=== PATIENT | female | born 1990 | race Caucasian/White ===

== ENCOUNTER 2016-02-22 22:12 | Emergency (ER) | payer OTHER ==
[2016-02-23] MEDS ORDERED: METOCLOPRAMIDE 10 MG TAB As Ordered ONE (00:09)
[2016-02-23 00:20] LABS: BASO # 0.1 K/mm3 (0.0-0.2); BASO % 0.9 % (0.0-1.0); EOS # 0.2 K/mm3 (0.0-0.50); LARGE UNSTAINED CELL # 0.1 K/mm3 (0.0-0.4); LARGE UNSTAINED CELL % 0.9 % (0.0-4.0); LYMPH # 2.7 K/mm3 (1.5-6.5); LYMPH % 21.3 % (24.0-44.0); MEAN CORPUSCULAR HEMOGLOBIN 30.7 pg (27.0-33.0); MEAN CORPUSCULAR VOLUME 90.2 fl (80.0-96.0); MONO # 0.4 K/mm3 (0.0-0.8); MONO % 3.3 % (0.0-5.0); NEUTROPHILS # 8.6 K/mm3 (1.8-7.7); NEUTROPHILS % 71.6 % (36.0-66.0); PLATELET COUNT, AUTOMATED 283 k/mm3 (150-450); RED CELL DISTRIBUTION WIDTH 12.6 % (11.5-14.5)
[2016-02-23 00:34] LABS: CONTROL LINE HCG INT CTR LINE PRESENT
[2016-02-23 00:42] LABS: ALBUMIN 4.1 GM/DL (3.2-5.2); ALBUMIN/GLOBULIN RATIO 1.24 (1.00-1.93); ALKALINE PHOSPHATASE 87 U/L (45-117); ALT/SGPT 20 U/L (12-78); ANION GAP 9 MEQ/L (8-16); AST/SGOT 9 U/L (15-37); BILIRUBIN,DIRECT < 0.1 MG/DL (0.0-0.2); BILIRUBIN,TOTAL 0.2 MG/DL (0.2-1.0); BLOOD UREA NITROGEN 10 MG/DL (7-18); CALCIUM LEVEL 8.8 MG/DL (8.5-10.1); CARBON DIOXIDE LEVEL 27 MEQ/L (21-32); CHLORIDE LEVEL 105 MEQ/L (98-107); CREATININE FOR GFR 0.69 MG/DL (0.55-1.02); GLOMERULAR FILTRATION RATE > 60.0 (>60); GLUCOSE, FASTING 98 MG/DL (70-105); POTASSIUM SERUM 4.1 MEQ/L (3.5-5.1); SODIUM LEVEL 141 MEQ/L (136-145); TOTAL PROTEIN 7.4 GM/DL (6.4-8.2)
--- NOTE | 2016-02-23 01:03 | EDDOCDS ---
Nurse's Notes [facility] Name: Sarah Cortes Age: 26 yrs Sex: Female : 1990 Arrival Date: 02/22/2016 Time: 22:12 Bed Triage 2 Private MD: CRISTINA Hurd Diagnosis: Nausea and vomiting Presentation: 02/21 22:35 Presenting complaint: Patient states: vomiting x3 weeks. Migraine started today. Pain ttb resolved. Slightly nauseated now. Denies changes. Denies -- negative tests at home. Pt states, "I'm sick of puking". Adult Sepsis Screening: The patient does not have new or worsening altered mentation. Patient's respiratory rate is less than 22. Systolic blood pressure is greater than 100. Patient has a qSOFA score of 0- Negative Sepsis Screen. Suicide/Homicide risk assessment- the patient denies having any suicidal and/or homicidal ideations and does not present with any other emotional, behavioral or mental health complaints. Status: The patient is a dependent. Transition of care: patient was not received from another setting of care. 22:35 Acuity: GALO Level 4 ttb 22:35 Method Of Arrival: Walkin/Carried/Asstd ttb Triage Assessment: 22:40 General: Appears in no apparent distress, well nourished, Behavior is appropriate for ttb age, cooperative, pleasant. Pain: Location: "residual headache" 2/10. HIV screening NA for this visit Offered previously. Neurological: Level of Consciousness is awake, confused, Oriented to person, place, time, Reports headache. Cardiovascular: Chest pain is denied. Respiratory: No deficits noted. Airway is patent Denies cough, shortness of breath. GI: Reports nausea, vomiting. Derm: Skin is normal. Injury Description: No known injury. 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 Celexa 40 mg Oral tab 1 tab once daily (Last dose: 02/22/2016 07:00) 2. Zyrtec 10 mg Oral tab 1 tab once daily (Last dose: 02/22/2016 07:00) 3. Vitamin Oral tab 1 tab once daily (Last dose: 02/22/2016 07:00) 4. metformin 500 mg Oral Tb24 1 tab 2 times per day (Last dose: 02/22/2016 18:00) 5. spmxelaqda-udqvvkvytq-thl-cod 36-746-05-30 mg oral cap (Last dose: 02/22/2016 20:45) - PMHx: irregular menses; Migraine Headaches; Depression; - PSHx: wisdom teeth; - Social history: Smoking status: Patient states was never smoker of tobacco. Patient/guardian denies using alcohol, street drugs, No barriers to communication noted, The patient speaks fluent Cymraes, Speaks appropriately for age. - Family history: Not pertinent. - : The pt / caregiver states he / she is not on anticoagulants. Home medication list is obtained from the patient. - Exposure Risk Screening:: None identified. Screenin/10 01:00 Screening information is obtained from the patient. Fall risk: No risks identified. lf1 Assistance ADL's: requires no assistance with activities of daily living. Abuse/DV Screen: The patient / caregiver reports he/she is:. Nutritional screening: No deficits noted. Advance Directives: Currently, there is. home support is adequate. Assessment: 00:55 Adult Sepsis Screening: The patient does not have new or worsening altered mentation. lf1 Patient's respiratory rate is less than 22. Systolic blood pressure is greater than 100. Patient has a qSOFA score of 0- Negative Sepsis Screen. General: Appears in no apparent distress, comfortable, Behavior is cooperative. Pain: Location: headache Pain currently is 3 out of 10 on a pain scale. Neurological: Level of Consciousness is awake, alert, Oriented to person, place, time. EENT: No deficits noted. Respiratory: Respiratory effort is even, unlabored. GI: No deficits noted. Denies nausea, vomiting. Derm: Skin is normal. Vital Signs: 02/21 22:13 BP 122 / 73; Pulse 91; Resp 18 S; Temp 97.8(T); Pulse Ox 100% on R/A; Weight 85.28 kg dd6 (R); Height 5 ft. 3 in. (160.02 cm) (R); 02/22 00:55 BP 106 / 67; Pulse 74; Resp 16; Temp 98.0(T); Pulse Ox 100% ; Pain 3/10; lf1 02/21 22:13 Body Mass Index 33.30 (85.28 kg, 160.02 cm) dd6 Vitals: 02/21 22:13 Log In Time: February 22, 2016 at 22:11. dd6 ED Course: 22:13 Patient visited by Jayden Covarrubias PCA. dd6 22:13 Vannessa [facility] is Private Physician. dd6 22:13 Patient moved to Waiting dd6 22:13 Patient moved to Pre RCE dd6 22:37 Triage Initiated ttb 23:53 Patient moved to Triage 2 lf1 23:55 Mario Alberto Cruz PA-C is PHCP. cc10 23:55 Dung Grant DO is Attending Physician. cc10 23:55 Patient visited by Mario Alberto Cruz PA-C. cc10 23:55 Patient visited by Mario Alberto Cruz PA-C. cc10 01 00:05 Urinalysis Sent. ajs 00:12 Patient visited by Nena Ladd LPN. cp1 00:14 HCG,Serum Qualitative Sent. ajs 00:14 Basic Metabolic Profile Sent. ajs 00:14 CBC with Diff Sent. ajs 00:14 Lipase Sent. ajs 00:14 Liver Profile Sent. ajs 00:48 Patient visited by Nena Ladd LPN. cp1 00:50 LOPEZ Hurd is Referral Physician. cc10 01:00 The patient / caregiver is instructed regarding the plan of care and ED course. lf1 01:00 No IV's were initiated during this patient's visit. No procedures done that require lf1 assistance. 01:01 T-Sheet-- Draft Copy was scanned into [employer] and attached to record. hs2 01:02 Patient visited by Muriel Oneal RN. lf1 Administered Medications: 00:12 Drug: Metoclopramide 10 mg [metoclopramide 10 mg tablet (1 tabs)] Route: PO; cp1 00:51 Follow up: Response: Nausea is decreased cp1 Order Results: Lab Order: Basic Metabolic Profile; SPEC'M 02/23/16 00:13 Test: GLUCOSE, FASTING; Value: 98; Range: 70-105; Units: MG/DL; Status: F Test: BLOOD UREA NITROGEN; Value: 10; Range: 7-18; Units: MG/DL; Status: F Test: CREATININE FOR GFR; Value: 0.69; Range: 0.55-1.02; Units: MG/DL; Status: F Test: SODIUM LEVEL; Range: 136-145; Units: MEQ/L; Status: I Test: POTASSIUM SERUM; Range: 3.5-5.1; Units: MEQ/L; Status: I Test: CHLORIDE LEVEL; Range: 98-107; Units: MEQ/L; Status: I Test: CARBON DIOXIDE LEVEL; Range: 21-32; Units: MEQ/L; Status: I Test: ANION GAP; Range: 8-16; Units: MEQ/L; Status: I Test: CALCIUM LEVEL; Range: 8.5-10.1; Units: MG/DL; Status: I Test: GLOMERULAR FILTRATION RATE; Value: > 60.0; Range: >60; Status: F Test: SODIUM LEVEL; Value: 141; Range: 136-145; Units: MEQ/L; Status: F Test: POTASSIUM SERUM; Value: 4.1; Range: 3.5-5.1; Units: MEQ/L; Status: F Test: CHLORIDE LEVEL; Value: 105; Range: 98-107; Units: MEQ/L; Status: F Test: CARBON DIOXIDE LEVEL; Value: 27; Range: 21-32; Units: MEQ/L; Status: F Test: ANION GAP; Value: 9; Range: 8-16; Units: MEQ/L; Status: F Test: CALCIUM LEVEL; Value: 8.8; Range: 8.5-10.1; Units: MG/DL; Status: F Test Note: ; Units are mL/min/1.73 m2 Chronic Kidney Disease Staging per NKF: Stage I & II GFR >=60 Normal to Mildly Decreased Stage III GFR 30-59 Moderately Decreased Stage IV GFR 15-29 Severely Decreased Stage V GFR <15 Very Little GFR Left ESRD GFR <15 on 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 Lab Order: CBC with Diff; SPEC'M 02/23/16 00:13 Test: WHITE BLOOD COUNT; Value: 12.0; Range: 4.0-10.0; Abnormal: Above high normal; Units: K/mm3; Status: F Test: RED BLOOD COUNT; Value: 4.52; Range: 4.00-5.40; Units: M/mm3; Status: F Test: HEMOGLOBIN; Value: 13.9; Range: 12.0-16.0; Units: g/dl; Status: F Test: HEMATOCRIT; Value: 40.8; Range: 36.0-47.0; Units: %; Status: F Test: MEAN CORPUSCULAR VOLUME; Value: 90.2; Range: 80.0-96.0; Units: fl; Status: F Test: MEAN CORPUSCULAR HEMOGLOBIN; Value: 30.7; Range: 27.0-33.0; Units: pg; Status: F Test: MEAN CORPUSCULAR HGB CONC; Value: 34.0; Range: 32.0-36.5; Units: g/dl; Status: F Test: RED CELL DISTRIBUTION WIDTH; Value: 12.6; Range: 11.5-14.5; Units: %; Status: F Test: PLATELET COUNT, AUTOMATED; Value: 283; Range: 150-450; Units: k/mm3; Status: F Test: NEUTROPHILS %; Value: 71.6; Range: 36.0-66.0; Abnormal: Above high normal; Units: %; Status: F Test: LYMPH %; Value: 21.3; Range: 24.0-44.0; Abnormal: Below low normal; Units: %; Status: F Test: MONO %; Value: 3.3; Range: 0.0-5.0; Units: %; Status: F Test: EOS %; Value: 2.0; Range: 0.0-3.0; Units: %; Status: F Test: BASO %; Value: 0.9; Range: 0.0-1.0; Units: %; Status: F Test: LARGE UNSTAINED CELL %; Value: 0.9; Range: 0.0-4.0; Units: %; Status: F Test: NEUTROPHILS #; Value: 8.6; Range: 1.8-7.7; Abnormal: Above high normal; Units: K/mm3; Status: F Test: LYMPH #; Value: 2.7; Range: 1.5-6.5; Units: K/mm3; Status: F Test: MONO #; Value: 0.4; Range: 0.0-0.8; Units: K/mm3; Status: F Test: EOS #; Value: 0.2; Range: 0.0-0.50; Units: K/mm3; Status: F Test: BASO #; Value: 0.1; Range: 0.0-0.2; Units: K/mm3; Status: F Test: LARGE UNSTAINED CELL #; Value: 0.1; Range: 0.0-0.4; Units: K/mm3; Status: F Lab Order: Lipase; [facility] 02/23/16 00:13 Test: LIPASE; Value: 122; Range: 73-393; Units: U/L; Status: F Lab Order: Liver Profile; [facility] 02/23/16 00:13 Test: AST/SGOT; Value: 9; Range: 15-37; Abnormal: Below low normal; Units: U/L; Status: F Test: ALT/SGPT; Value: 20; Range: 12-78; Units: U/L; Status: F Test: ALKALINE PHOSPHATASE; Value: 87; Range: 45-117; Units: U/L; Status: F Test: BILIRUBIN,TOTAL; Value: 0.2; Range: 0.2-1.0; Units: MG/DL; Status: F Test: BILIRUBIN,DIRECT; Value: < 0.1; Range: 0.0-0.2; Units: MG/DL; Status: F Test: TOTAL PROTEIN; Value: 7.4; Range: 6.4-8.2; Units: GM/DL; Status: F Test: ALBUMIN; Value: 4.1; Range: 3.2-5.2; Units: GM/DL; Status: F Test: ALBUMIN/GLOBULIN RATIO; Value: 1.24; Range: 1.00-1.93; Status: F Lab Order: Urinalysis; [facility] 02/23/16 00:05 Test: APPEARANCE, URINE; Value: CLOUDY; Range: CLEAR; Abnormal: Above high normal; Status: F Test: COLOR, URINE; Value: YELLOW; Range: YELLOW; Status: F Test: PH,URINE; Value: 5.0; Range: 5.0-9.0; Units: UNITS; Status: F Test: SPECIFIC GRAVITY URINE AUTO; Value: 1.033; Range: 1.002-1.035; Status: F Test: PROTEIN, URINE AUTO; Value: 2+; Range: NEGATIVE; Abnormal: Above high normal; Units: mg/dL; Status: F Test: GLUCOSE, URINE (UA) AUTO; Value: NEGATIVE; Range: NEGATIVE; Units: mg/dL; Status: F Test: KETONE, URINE AUTO; Value: TRACE; Range: NEGATIVE; Abnormal: Above high normal; Units: mg/dL; Status: F Test: UROBILINOGEN, URINE AUTO; Value: 0.2; Range: 0.0-2.0; Units: mg/dL; Status: F Test: BILIRUBIN, URINE AUTO; Value: NEGATIVE; Range: NEGATIVE; Status: F Test: NITRITE, URINE AUTO; Value: NEGATIVE; Range: NEGATIVE; Status: F Test: LEUKOCYTE ESTERASE, URINE AUTO; Value: 1+; Range: NEGATIVE; Abnormal: Above high normal; Status: F Test: BLOOD, URINE BLOOD; Value: NEGATIVE; Range: NEGATIVE; Status: F Test: WBC, URINE AUTO; Value: 2; Range: 0-3; Units: /HPF; Status: F Test: RBC, URINE AUTO; Value: 15; Range: 0-3; Abnormal: Above high normal; Units: /HPF; Status: F Test: BACTERIA, URINE AUTO; Value: NEGATIVE; Range: NEGATIVE; Status: F Test: SQUAMOUS EPITHELIAL CELL UR AU; Value: 15; Range: 0-6; Units: /HPF; Status: F Test: MUCUS, URINE; Value: SMALL; Range: NEGATIVE; Status: F Test: HYALINE CAST, URINE AUTO; Value: 0; Range: 0-1; Units: /LPF; Status: F Lab Order: HCG,Serum Qualitative; SPEC'M 02/23/16 00:13 Test: HCG, SERUM QUALITATIVE; Value: NEGATIVE; Range: NEGATIVE; Status: F Outcome: 00:50 Discharge ordered by Provider. cc10 01:00 Discharge Assessment: Patient awake, alert and oriented x 3. No cognitive and/or lf1 functional deficits noted. Patient verbalized understanding of disposition instructions. Patient awake and alert. Oriented to person, place and time. Patient verbalized understanding of disposition instructions. Patient has no functional deficits. patient administered narcotics - no. The following High Risk Discharge criteria are identified: None. Condition: improved. Discharge instructions given to patient, Instructed on discharge instructions, follow up and referral plans. medication usage, Demonstrated understanding of instructions, medications, Pt was receptive of discharge instructions/ teaching. Prescriptions given X 2. No special radiology studies were completed. Property :Personal belongings accompany Pt. 01:02 Patient left the ED. lf1 Signatures: Muriel Oneal,RN RN lf1 Jayden Covarrubias, SALES PROMOTION MANAGER SALES PROMOTION MANAGER dd6 Nena Ladd LPN [id number] TANK DRIVER cp1 Jerri Nobles Teresa RN RN ttb Mario Alberto Cruz, PA-C PA-C cc10 Gladys Hodge, Reg Reg hs2 MTDD
--- NOTE | 2016-02-23 01:03 | EDDOCDS ---
Physician Documentation [facility] Name: Sarah Cortes Age: 26 yrs Sex: Female : 1990 Arrival Date: 02/22/2016 Time: 22:12 Bed Triage 2 Private MD: CRISTINA Hurd Disposition: 02/23/16 00:50 Discharged to Home/Self Care. Impression: Nausea and vomiting. - Condition is Stable. - Discharge Instructions: Nausea and Vomiting. - Prescriptions for Compazine 10 mg Oral Tablet - take 1 tablet by ORAL route every 8 hours As needed; 20 tablet. Zantac 300 mg Oral Tablet - take 1 tablet by ORAL route At bedtime; 30 tablet. - Medication Reconciliation, Local Pharmacy Hours form. - Follow up: Emergency Department; When: As needed; Reason: Worsening of conditions. Follow up: CRISTINA Hurd; When: Tomorrow; Reason: Wound/Symptom Recheck, Recheck today's complaints, Worsening of conditions, Continuance of care. - Problem is an ongoing problem. - Symptoms have improved. Historical: - Allergies: no known allergies; - Home Meds: 1. Celexa 40 mg Oral tab 1 tab once daily (Last dose: 02/22/2016 07:00) 2. Zyrtec 10 mg Oral tab 1 tab once daily (Last dose: 02/22/2016 07:00) 3. Vitamin Oral tab 1 tab once daily (Last dose: 02/22/2016 07:00) 4. metformin 500 mg Oral Tb24 1 tab 2 times per day (Last dose: 02/22/2016 18:00) 5. ipftjqwetj-kqqvdtucmp-itw-cod 54-409-67-30 mg oral cap (Last dose: 02/22/2016 20:45) - PMHx: irregular menses; Migraine Headaches; Depression; - PSHx: wisdom teeth; - Social history: Smoking status: Patient states was never smoker of tobacco. Patient/guardian denies using alcohol, street drugs, No barriers to communication noted, The patient speaks fluent Urdu, Speaks appropriately for age. - Family history: Not pertinent. - : The pt / caregiver states he / she is not on anticoagulants. Home medication list is obtained from the patient. - Exposure Risk Screening:: None identified. 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 3 in. (160.02 cm) (R); 02/22 00:55 BP 106 / 67; Pulse 74; Resp 16; Temp 98.0(T); Pulse Ox 100% ; Pain 3/10; lf1 02/21 22:13 Body Mass Index 33.30 (85.28 kg, 160.02 cm) dd6 MDM: 00:01 Metoclopramide 10 mg PO once ordered. cc10 00:02 Basic Metabolic Profile Ordered. EDMS 00:02 CBC with Diff Ordered. EDMS 00:03 Lipase Ordered. EDMS 00:03 Liver Profile Ordered. EDMS 00:03 Urinalysis Ordered. EDMS 00:03 HCG,Serum Qualitative Ordered. EDMS 00:48 CBC with Diff Reviewed. cc10 00:48 Liver Profile Reviewed. cc10 00:48 Urinalysis Reviewed. cc10 00:48 Basic Metabolic Profile Reviewed. cc10 00:48 Lipase Reviewed. cc10 00:48 HCG,Serum Qualitative Reviewed. cc10 00:[address] [facility] 01:01 T-Sheet-- Draft Copy was scanned into [employer] and attached to record. hs2 Administered Medications: 00:12 Drug: Metoclopramide 10 mg [metoclopramide 10 mg tablet (1 tabs)] Route: PO; cp1 00:51 Follow up: Response: Nausea is decreased cp1 Signatures: Dispatcher [employer] EDMO Muriel OnealRN RN lf1 Loreta Orta RN RN ttb Mario Alberto Cruz PA-C PA-C cc10 Joyce Wetzel PA-C PA-C dt4 Sofy Fischer [facility] Gladys Hodge, Reg Reg hs2 Nena Ladd LPN cp1 The chart was reviewed and I authenticate all verbal orders and agree with the evaluation and treatment provided.Corrections: (The following items were deleted from the chart) 00:01 02/21 23:01 UCG by Nursing ordered. dt4 cc10 Attachments: 02/22 01:01 T-Sheet-- Draft Copy hs2 MTDD
--- NOTE | 2016-02-25 02:03 | EDDOCDS ---
Physician Documentation [facility] Name: Sarah Cortes Age: 26 yrs Sex: Female : 1990 Arrival Date: 02/22/2016 Time: 22:12 Bed Triage 2 Private MD: CRISTINA Hurd Disposition: 02/23/16 00:50 Discharged to Home/Self Care. Impression: Nausea and vomiting. - Condition is Stable. - Discharge Instructions: Nausea and Vomiting. - Prescriptions for Compazine 10 mg Oral Tablet - take 1 tablet by ORAL route every 8 hours As needed; 20 tablet. Zantac 300 mg Oral Tablet - take 1 tablet by ORAL route At bedtime; 30 tablet. - Medication Reconciliation, Local Pharmacy Hours form. - Follow up: Emergency Department; When: As needed; Reason: Worsening of conditions. Follow up: CRISTINA Hurd; When: Tomorrow; Reason: Wound/Symptom Recheck, Recheck today's complaints, Worsening of conditions, Continuance of care. - Problem is an ongoing problem. - Symptoms have improved. Historical: - Allergies: no known allergies; - Home Meds: 1. Celexa 40 mg Oral tab 1 tab once daily (Last dose: 02/22/2016 07:00) 2. Zyrtec 10 mg Oral tab 1 tab once daily (Last dose: 02/22/2016 07:00) 3. Vitamin Oral tab 1 tab once daily (Last dose: 02/22/2016 07:00) 4. metformin 500 mg Oral Tb24 1 tab 2 times per day (Last dose: 02/22/2016 18:00) 5. cwvnmxdiyl-ybhtixpebg-hit-cod 73-573-09-30 mg oral cap (Last dose: 02/22/2016 20:45) - PMHx: irregular menses; Migraine Headaches; Depression; - PSHx: wisdom teeth; - Social history: Smoking status: Patient states was never smoker of tobacco. Patient/guardian denies using alcohol, street drugs, No barriers to communication noted, The patient speaks fluent Irish, Speaks appropriately for age. - Family history: Not pertinent. - : The pt / caregiver states he / she is not on anticoagulants. Home medication list is obtained from the patient. - Exposure Risk Screening:: None identified. 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 3 in. (160.02 cm) (R); 02/22 00:55 BP 106 / 67; Pulse 74; Resp 16; Temp 98.0(T); Pulse Ox 100% ; Pain 3/10; lf1 02/21 22:13 Body Mass Index 33.30 (85.28 kg, 160.02 cm) dd6 MDM: 00:01 Metoclopramide 10 mg PO once ordered. cc10 00:02 Basic Metabolic Profile Ordered. EDMS 00:02 CBC with Diff Ordered. EDMS 00:03 Lipase Ordered. EDMS 00:03 Liver Profile Ordered. EDMS 00:03 Urinalysis Ordered. EDMS 00:03 HCG,Serum Qualitative Ordered. EDMS 00:48 CBC with Diff Reviewed. cc10 00:48 Liver Profile Reviewed. cc10 00:48 Urinalysis Reviewed. cc10 00:48 Basic Metabolic Profile Reviewed. cc10 00:48 Lipase Reviewed. cc10 00:48 HCG,Serum Qualitative Reviewed. cc10 00:57 Financial registration complete. [facility] 01:01 T-Sheet-- Draft Copy was scanned into [employer] and attached to record. hs2 01:47 [facility] Payment Agreement was scanned into [employer] and attached to record. [facility] Administered Medications: 00:12 Drug: Metoclopramide 10 mg [metoclopramide 10 mg tablet (1 tabs)] Route: PO; cp1 00:51 Follow up: Response: Nausea is decreased cp1 Signatures: Dispatcher [employer] EDMS Muriel Oneal RN RN lf1 Loreta Orta RN RN ttb Mario Alberto Cruz PA-C PA-C cc10 Joyce Wetzel PA-C PA-C dt4 Sofy Fischer [facility] Gladys Hodge, Reg Reg hs2 Nena Ladd LPN cp1 The chart was reviewed and I authenticate all verbal orders and agree with the evaluation and treatment provided.Corrections: (The following items were deleted from the chart) 00:02/21 23:01 UCG by Nursing ordered. dt4 cc10 Attachments: 02/22 01:01 T-Sheet-- Draft Copy hs2 01:47 [facility] Payment Agreement [facility] Chart Complete MTDD
--- NOTE | 2016-02-25 02:03 | EDDOCDS ---
Nurse's Notes [facility] Name: Sarah Cortes Age: 26 yrs Sex: Female : 1990 Arrival Date: 02/22/2016 Time: 22:12 Bed Triage 2 Private MD: RCISTINA Hurd Diagnosis: Nausea and vomiting Presentation: 02/21 22:35 Presenting complaint: Patient states: vomiting x3 weeks. Migraine started today. Pain ttb resolved. Slightly nauseated now. Denies changes. Denies -- negative tests at home. Pt states, "I'm sick of puking". Adult Sepsis Screening: The patient does not have new or worsening altered mentation. Patient's respiratory rate is less than 22. Systolic blood pressure is greater than 100. Patient has a qSOFA score of 0- Negative Sepsis Screen. Suicide/Homicide risk assessment- the patient denies having any suicidal and/or homicidal ideations and does not present with any other emotional, behavioral or mental health complaints. Status: The patient is a dependent. Transition of care: patient was not received from another setting of care. 22:35 Acuity: GALO Level 4 ttb 22:35 Method Of Arrival: Walkin/Carried/Asstd ttb Triage Assessment: 22:40 General: Appears in no apparent distress, well nourished, Behavior is appropriate for ttb age, cooperative, pleasant. Pain: Location: "residual headache" 2/10. HIV screening NA for this visit Offered previously. Neurological: Level of Consciousness is awake, confused, Oriented to person, place, time, Reports headache. Cardiovascular: Chest pain is denied. Respiratory: No deficits noted. Airway is patent Denies cough, shortness of breath. GI: Reports nausea, vomiting. Derm: Skin is normal. Injury Description: No known injury. 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 Celexa 40 mg Oral tab 1 tab once daily (Last dose: 02/22/2016 07:00) 2. Zyrtec 10 mg Oral tab 1 tab once daily (Last dose: 02/22/2016 07:00) 3. Vitamin Oral tab 1 tab once daily (Last dose: 02/22/2016 07:00) 4. metformin 500 mg Oral Tb24 1 tab 2 times per day (Last dose: 02/22/2016 18:00) 5. zohyrowxjf-gzkgrabwbj-ytt-cod 41-258-59-30 mg oral cap (Last dose: 02/22/2016 20:45) - PMHx: irregular menses; Migraine Headaches; Depression; - PSHx: wisdom teeth; - Social history: Smoking status: Patient states was never smoker of tobacco. Patient/guardian denies using alcohol, street drugs, No barriers to communication noted, The patient speaks fluent Lebanese, Speaks appropriately for age. - Family history: Not pertinent. - : The pt / caregiver states he / she is not on anticoagulants. Home medication list is obtained from the patient. - Exposure Risk Screening:: None identified. Screenin/10 01:00 Screening information is obtained from the patient. Fall risk: No risks identified. lf1 Assistance ADL's: requires no assistance with activities of daily living. Abuse/DV Screen: The patient / caregiver reports he/she is:. Nutritional screening: No deficits noted. Advance Directives: Currently, there is. home support is adequate. Assessment: 00:55 Adult Sepsis Screening: The patient does not have new or worsening altered mentation. lf1 Patient's respiratory rate is less than 22. Systolic blood pressure is greater than 100. Patient has a qSOFA score of 0- Negative Sepsis Screen. General: Appears in no apparent distress, comfortable, Behavior is cooperative. Pain: Location: headache Pain currently is 3 out of 10 on a pain scale. Neurological: Level of Consciousness is awake, alert, Oriented to person, place, time. EENT: No deficits noted. Respiratory: Respiratory effort is even, unlabored. GI: No deficits noted. Denies nausea, vomiting. Derm: Skin is normal. Vital Signs: 02/21 22:13 BP 122 / 73; Pulse 91; Resp 18 S; Temp 97.8(T); Pulse Ox 100% on R/A; Weight 85.28 kg dd6 (R); Height 5 ft. 3 in. (160.02 cm) (R); 02/22 00:55 BP 106 / 67; Pulse 74; Resp 16; Temp 98.0(T); Pulse Ox 100% ; Pain 3/10; lf1 02/21 22:13 Body Mass Index 33.30 (85.28 kg, 160.02 cm) dd6 Vitals: 02/21 22:13 Log In Time: February 22, 2016 at 22:11. dd6 ED Course: 22:13 Patient visited by Jayden Covarrubias PCA. dd6 22:13 Vannessa [facility] [place] is Private Physician. dd6 22:13 Patient moved to Waiting dd6 22:13 Patient moved to Pre RCE dd6 22:37 Triage Initiated ttb 23:53 Patient moved to Triage 2 lf1 23:55 Mario Alberto Cruz PA-C is PHCP. cc10 23:55 Dung Grant DO is Attending Physician. cc10 23:55 Patient visited by Mario Alberto Cruz PA-C. cc10 23:55 Patient visited by Mario Alberto Cruz PA-C. cc10 01 00:05 Urinalysis Sent. ajs 00:12 Patient visited by Nena Ladd LPN. cp1 00:14 HCG,Serum Qualitative Sent. ajs 00:14 Basic Metabolic Profile Sent. ajs 00:14 CBC with Diff Sent. ajs 00:14 Lipase Sent. ajs 00:14 Liver Profile Sent. ajs 00:48 Patient visited by Nena Ladd LPN. cp1 00:50 Vannessa [facility] [place] is Referral Physician. cc10 01:00 The patient / caregiver is instructed regarding the plan of care and ED course. lf1 01:00 No IV's were initiated during this patient's visit. No procedures done that require lf1 assistance. 01:01 T-Sheet-- Draft Copy was scanned into [employer] and attached to record. hs2 01:02 Patient visited by Muriel Oneal RN. lf1 01:47 [facility] Payment Agreement was scanned into [employer] and attached to record. [facility] Administered Medications: 00:12 Drug: Metoclopramide 10 mg [metoclopramide 10 mg tablet (1 tabs)] Route: PO; cp1 00:51 Follow up: Response: Nausea is decreased cp1 Order Results: Lab Order: Basic Metabolic Profile; SPEC'M 02/23/16 00:13 Test: GLUCOSE, FASTING; Value: 98; Range: 70-105; Units: MG/DL; Status: F Test: BLOOD UREA NITROGEN; Value: 10; Range: 7-18; Units: MG/DL; Status: F Test: CREATININE FOR GFR; Value: 0.69; Range: 0.55-1.02; Units: MG/DL; Status: F Test: SODIUM LEVEL; Range: 136-145; Units: MEQ/L; Status: I Test: POTASSIUM SERUM; Range: 3.5-5.1; Units: MEQ/L; Status: I Test: CHLORIDE LEVEL; Range: 98-107; Units: MEQ/L; Status: I Test: CARBON DIOXIDE LEVEL; Range: 21-32; Units: MEQ/L; Status: I Test: ANION GAP; Range: 8-16; Units: MEQ/L; Status: I Test: CALCIUM LEVEL; Range: 8.5-10.1; Units: MG/DL; Status: I Test: GLOMERULAR FILTRATION RATE; Value: > 60.0; Range: >60; Status: F Test: SODIUM LEVEL; Value: 141; Range: 136-145; Units: MEQ/L; Status: F Test: POTASSIUM SERUM; Value: 4.1; Range: 3.5-5.1; Units: MEQ/L; Status: F Test: CHLORIDE LEVEL; Value: 105; Range: 98-107; Units: MEQ/L; Status: F Test: CARBON DIOXIDE LEVEL; Value: 27; Range: 21-32; Units: MEQ/L; Status: F Test: ANION GAP; Value: 9; Range: 8-16; Units: MEQ/L; Status: F Test: CALCIUM LEVEL; Value: 8.8; Range: 8.5-10.1; Units: MG/DL; Status: F Test Note: ; Units are mL/min/1.73 m2 Chronic Kidney Disease Staging per NKF: Stage I & II GFR >=60 Normal to Mildly Decreased Stage III GFR 30-59 Moderately Decreased Stage IV GFR 15-29 Severely Decreased Stage V GFR <15 Very Little GFR Left ESRD GFR <15 on [employer] Lab Order: CBC with Diff; SPEC'M 02/23/16 00:13 Test: WHITE BLOOD COUNT; Value: 12.0; Range: 4.0-10.0; Abnormal: Above high normal; Units: K/mm3; Status: F Test: RED BLOOD COUNT; Value: 4.52; Range: 4.00-5.40; Units: M/mm3; Status: F Test: HEMOGLOBIN; Value: 13.9; Range: 12.0-16.0; Units: g/dl; Status: F Test: HEMATOCRIT; Value: 40.8; Range: 36.0-47.0; Units: %; Status: F Test: MEAN CORPUSCULAR VOLUME; Value: 90.2; Range: 80.0-96.0; Units: fl; Status: F Test: MEAN CORPUSCULAR HEMOGLOBIN; Value: 30.7; Range: 27.0-33.0; Units: pg; Status: F Test: MEAN CORPUSCULAR HGB CONC; Value: 34.0; Range: 32.0-36.5; Units: g/dl; Status: F Test: RED CELL DISTRIBUTION WIDTH; Value: 12.6; Range: 11.5-14.5; Units: %; Status: F Test: PLATELET COUNT, AUTOMATED; Value: 283; Range: 150-450; Units: k/mm3; Status: F Test: NEUTROPHILS %; Value: 71.6; Range: 36.0-66.0; Abnormal: Above high normal; Units: %; Status: F Test: LYMPH %; Value: 21.3; Range: 24.0-44.0; Abnormal: Below low normal; Units: %; Status: F Test: MONO %; Value: 3.3; Range: 0.0-5.0; Units: %; Status: F Test: EOS %; Value: 2.0; Range: 0.0-3.0; Units: %; Status: F Test: BASO %; Value: 0.9; Range: 0.0-1.0; Units: %; Status: F Test: LARGE UNSTAINED CELL %; Value: 0.9; Range: 0.0-4.0; Units: %; Status: F Test: NEUTROPHILS #; Value: 8.6; Range: 1.8-7.7; Abnormal: Above high normal; Units: K/mm3; Status: F Test: LYMPH #; Value: 2.7; Range: 1.5-6.5; Units: K/mm3; Status: F Test: MONO #; Value: 0.4; Range: 0.0-0.8; Units: K/mm3; Status: F Test: EOS #; Value: 0.2; Range: 0.0-0.50; Units: K/mm3; Status: F Test: BASO #; Value: 0.1; Range: 0.0-0.2; Units: K/mm3; Status: F Test: LARGE UNSTAINED CELL #; Value: 0.1; Range: 0.0-0.4; Units: K/mm3; Status: F Lab Order: Lipase; [facility]' 02/23/16 00:13 Test: LIPASE; Value: 122; Range: 73-393; Units: U/L; Status: F Lab Order: Liver Profile; [facility]' 02/23/16 00:13 Test: AST/SGOT; Value: 9; Range: 15-37; Abnormal: Below low normal; Units: U/L; Status: F Test: ALT/SGPT; Value: 20; Range: 12-78; Units: U/L; Status: F Test: ALKALINE PHOSPHATASE; Value: 87; Range: 45-117; Units: U/L; Status: F Test: BILIRUBIN,TOTAL; Value: 0.2; Range: 0.2-1.0; Units: MG/DL; Status: F Test: BILIRUBIN,DIRECT; Value: < 0.1; Range: 0.0-0.2; Units: MG/DL; Status: F Test: TOTAL PROTEIN; Value: 7.4; Range: 6.4-8.2; Units: GM/DL; Status: F Test: ALBUMIN; Value: 4.1; Range: 3.2-5.2; Units: GM/DL; Status: F Test: ALBUMIN/GLOBULIN RATIO; Value: 1.24; Range: 1.00-1.93; Status: F Lab Order: Urinalysis; SPEC' 02/23/16 00:05 Test: APPEARANCE, URINE; Value: CLOUDY; Range: CLEAR; Abnormal: Above high normal; Status: F Test: COLOR, URINE; Value: YELLOW; Range: YELLOW; Status: F Test: PH,URINE; Value: 5.0; Range: 5.0-9.0; Units: UNITS; Status: F Test: SPECIFIC GRAVITY URINE AUTO; Value: 1.033; Range: 1.002-1.035; Status: F Test: PROTEIN, URINE AUTO; Value: 2+; Range: NEGATIVE; Abnormal: Above high normal; Units: mg/dL; Status: F Test: GLUCOSE, URINE (UA) AUTO; Value: NEGATIVE; Range: NEGATIVE; Units: mg/dL; Status: F Test: KETONE, URINE AUTO; Value: TRACE; Range: NEGATIVE; Abnormal: Above high normal; Units: mg/dL; Status: F Test: UROBILINOGEN, URINE AUTO; Value: 0.2; Range: 0.0-2.0; Units: mg/dL; Status: F Test: BILIRUBIN, URINE AUTO; Value: NEGATIVE; Range: NEGATIVE; Status: F Test: NITRITE, URINE AUTO; Value: NEGATIVE; Range: NEGATIVE; Status: F Test: LEUKOCYTE ESTERASE, URINE AUTO; Value: 1+; Range: NEGATIVE; Abnormal: Above high normal; Status: F Test: BLOOD, URINE BLOOD; Value: NEGATIVE; Range: NEGATIVE; Status: F Test: WBC, URINE AUTO; Value: 2; Range: 0-3; Units: /HPF; Status: F Test: RBC, URINE AUTO; Value: 15; Range: 0-3; Abnormal: Above high normal; Units: /HPF; Status: F Test: BACTERIA, URINE AUTO; Value: NEGATIVE; Range: NEGATIVE; Status: F Test: SQUAMOUS EPITHELIAL CELL UR AU; Value: 15; Range: 0-6; Units: /HPF; Status: F Test: MUCUS, URINE; Value: SMALL; Range: NEGATIVE; Status: F Test: HYALINE CAST, URINE AUTO; Value: 0; Range: 0-1; Units: /LPF; Status: F Lab Order: HCG,Serum Qualitative; SPEC'M 02/23/16 00:13 Test: HCG, SERUM QUALITATIVE; Value: NEGATIVE; Range: NEGATIVE; Status: F Outcome: 00:50 Discharge ordered by Provider. cc10 01:00 Discharge Assessment: Patient awake, alert and oriented x 3. No cognitive and/or lf1 functional deficits noted. Patient verbalized understanding of disposition instructions. Patient awake and alert. Oriented to person, place and time. Patient verbalized understanding of disposition instructions. Patient has no functional deficits. patient administered narcotics - no. The following High Risk Discharge criteria are identified: None. Condition: improved. Discharge instructions given to patient, Instructed on discharge instructions, follow up and referral plans. medication usage, Demonstrated understanding of instructions, medications, Pt was receptive of discharge instructions/ teaching. Prescriptions given X 2. No special radiology studies were completed. Property :Personal belongings accompany Pt. 01:02 Patient left the ED. lf1 Signatures: Muriel Oneal,TRAY RN lf1 Jayden Covarrubias, BALL WARPER TENDER BALL WARPER TENDER dd6 Nena Ladd,LICENSING AND REGISTRATION DIRECTOR LICENSING AND REGISTRATION DIRECTOR cp1 Jerri Nobles Teresa, RN RN batshevab Mario Alberto Cruz, PA-C PA-C cc10 Sofy Fischer Hillary, Reg Reg hs2 Chart Complete MTDD
--- NOTE | 2016-02-25 02:03 | EDDOCDS ---
Physician Documentation [facility] Name: Sarah Cortes Age: 26 yrs Sex: Female : 1990 Arrival Date: 02/22/2016 Time: 22:12 Bed Triage 2 Private MD: CRISTINA Hurd Disposition: 02/23/16 00:50 Discharged to Home/Self Care. Impression: Nausea and vomiting. - Condition is Stable. - Discharge Instructions: Nausea and Vomiting. - Prescriptions for Compazine 10 mg Oral Tablet - take 1 tablet by ORAL route every 8 hours As needed; 20 tablet. Zantac 300 mg Oral Tablet - take 1 tablet by ORAL route At bedtime; 30 tablet. - Medication Reconciliation, Local Pharmacy Hours form. - Follow up: Emergency Department; When: As needed; Reason: Worsening of conditions. Follow up: CRISTINA Hurd; When: Tomorrow; Reason: Wound/Symptom Recheck, Recheck today's complaints, Worsening of conditions, Continuance of care. - Problem is an ongoing problem. - Symptoms have improved. Historical: - Allergies: no known allergies; - Home Meds: 1. Celexa 40 mg Oral tab 1 tab once daily (Last dose: 02/22/2016 07:00) 2. Zyrtec 10 mg Oral tab 1 tab once daily (Last dose: 02/22/2016 07:00) 3. Vitamin Oral tab 1 tab once daily (Last dose: 02/22/2016 07:00) 4. metformin 500 mg Oral Tb24 1 tab 2 times per day (Last dose: 02/22/2016 18:00) 5. plebmwaagu-wutasalbqw-mdg-cod 79-292-53-30 mg oral cap (Last dose: 02/22/2016 20:45) - PMHx: irregular menses; Migraine Headaches; Depression; - PSHx: wisdom teeth; - Social history: Smoking status: Patient states was never smoker of tobacco. Patient/guardian denies using alcohol, street drugs, No barriers to communication noted, The patient speaks fluent Greek, Speaks appropriately for age. - Family history: Not pertinent. - : The pt / caregiver states he / she is not on anticoagulants. Home medication list is obtained from the patient. - Exposure Risk Screening:: None identified. 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 3 in. (160.02 cm) (R); 02/22 00:55 BP 106 / 67; Pulse 74; Resp 16; Temp 98.0(T); Pulse Ox 100% ; Pain 3/10; lf1 02/21 22:13 Body Mass Index 33.30 (85.28 kg, 160.02 cm) dd6 MDM: 00:01 Metoclopramide 10 mg PO once ordered. cc10 00:02 Basic Metabolic Profile Ordered. EDMS 00:02 CBC with Diff Ordered. EDMS 00:03 Lipase Ordered. EDMS 00:03 Liver Profile Ordered. EDMS 00:03 Urinalysis Ordered. EDMS 00:03 HCG,Serum Qualitative Ordered. EDMS 00:48 CBC with Diff Reviewed. cc10 00:48 Liver Profile Reviewed. cc10 00:48 Urinalysis Reviewed. cc10 00:48 Basic Metabolic Profile Reviewed. cc10 00:48 Lipase Reviewed. cc10 00:48 HCG,Serum Qualitative Reviewed. cc10 00:57 Financial registration complete. [facility] 01:01 T-Sheet-- Draft Copy was scanned into [employer] and attached to record. hs2 01:47 [facility] Payment Agreement was scanned into [employer] and attached to record. [facility] Administered Medications: 00:12 Drug: Metoclopramide 10 mg [metoclopramide 10 mg tablet (1 tabs)] Route: PO; cp1 00:51 Follow up: Response: Nausea is decreased cp1 Signatures: Dispatcher [employer] EDMS Muriel Oneal RN RN lf1 Loreta Orta RN RN ttb Mario Alberto Cruz PA-C PA-C cc10 Joyce Wetzel PA-C PA-C dt4 Sofy Fischer [facility] Gladys Hodge, Reg Reg hs2 Nena Ladd LPN cp1 The chart was reviewed and I authenticate all verbal orders and agree with the evaluation and treatment provided.Corrections: (The following items were deleted from the chart) 00:02/21 23:01 UCG by Nursing ordered. dt4 cc10 Attachments: 02/22 01:01 T-Sheet-- Draft Copy hs2 01:47 [facility] [place] Payment Agreement [facility] Chart Complete MTDD
== END 2016-02-23 01:02 | disposition home or self-care (01) ==
LOC: M ED 22:12
DX: R11.2 Nausea with vomiting, unspecified (principal); G43.909 Migraine, unspecified, not intractable, without status migrainosus; F32.9 Major depressive disorder, single episode, unspecified; N92.6 Irregular menstruation, unspecified; Z79.899 Other long term (current) drug therapy